=== PATIENT | female | born 1955 | race Caucasian/White ===

== ENCOUNTER 2017-02-21 00:32 | Outpatient (CLI) | payer MEDICAID | END 2017-02-21 00:33 | disposition critical access hospital (66) | DX: R45.89 Other symptoms and signs involving emotional state (principal) | CPT/HCPCS: A0425; A0429 ==

== ENCOUNTER 2017-02-21 00:52 | Inpatient (IN) | payer MEDICAID ==
[2017-02-21] MEDS ORDERED: SODIUM CHLORIDE 0.9% 1,000 ML IV ONE (02:42)
[2017-02-21] MEDS ORDERED: SODIUM CHLORIDE FLUSH 0.9% 10 ML SYRINGE IVP PRN ×2 (03:26→06:45)
[2017-02-21] MEDS ORDERED: SODIUM CHLORIDE 0.9% 1,000 ML IV SCH (04:00)
[2017-02-21] MEDS: NS W/20 MEQ KCL 1,000 ML IV SCH ×5 (04:25→21:51)
[2017-02-21] MEDS: MAGNESIUM OXIDE 400 MG TABLET PO SCH ×2 (06:10→11:42)
[2017-02-21] MEDS: METHOCARBAMOL 500 MG TABLET PO PRN ×3 (06:10→18:40)
[2017-02-21] MEDS: SODIUM CHLORIDE FLUSH 0.9% 10 ML SYRINGE IVP SCH ×3 (06:10→13:02)
[2017-02-21] MEDS: POTASSIUM CHLOR 10 MEQ/100 ML 100 ML IV SCH ×4 (08:44→11:42)
[2017-02-21] MEDS: ENOXAPARIN 40 MG/0.4 ML SYRINGE SUBQ SCH (09:49)
[2017-02-21] MEDS ORDERED: METHOCARBAMOL 500 MG TABLET PO SCH (21:15)
[2017-02-21] MEDS: ACETAMINOPHEN 325 MG TABLET PO PRN (23:19)
[2017-02-22] MEDS: SODIUM CHLORIDE FLUSH 0.9% 10 ML SYRINGE IVP SCH ×4 (05:42→20:14)
[2017-02-22] MEDS: NS W/20 MEQ KCL 1,000 ML IV SCH ×4 (05:54→20:15)
[2017-02-22] MEDS: METHOCARBAMOL 500 MG TABLET PO SCH ×4 (05:55→20:25)
[2017-02-22] MEDS: ACETAMINOPHEN 325 MG TABLET PO PRN ×2 (05:55→10:56)
[2017-02-22] MEDS: ENOXAPARIN 40 MG/0.4 ML SYRINGE SUBQ SCH (08:53)
[2017-02-22] MEDS ORDERED: ZOLPIDEM 5 MG TABLET PO PRN (14:03)
[2017-02-22] MEDS: IBUPROFEN 800 MG TABLET PO SCH ×2 (15:08→20:25)
[2017-02-22] MEDS ORDERED: FLUoxetine 10 MG CAPSULE PO SCH (21:00)
[2017-02-23] MEDS: NS W/20 MEQ KCL 1,000 ML IV SCH ×2 (01:37→11:35)
[2017-02-23] MEDS: IBUPROFEN 800 MG TABLET PO SCH ×2 (05:36→13:08)
[2017-02-23] MEDS: SODIUM CHLORIDE FLUSH 0.9% 10 ML SYRINGE IVP SCH ×2 (05:46→13:09)
[2017-02-23] MEDS ORDERED: FLUoxetine 10 MG CAPSULE PO SCH (09:00)
[2017-02-23] MEDS ORDERED: LISINOPRIL 5 MG TABLET PO SCH (09:00)
[2017-02-23] MEDS ORDERED: FLUOXETINE HCL 20 MG PO SCH (09:00)
[2017-02-23] MEDS: METHOCARBAMOL 500 MG TABLET PO SCH ×2 (09:31→13:08)
[2017-02-23] MEDS: ENOXAPARIN 40 MG/0.4 ML SYRINGE SUBQ SCH (09:32)
== END 2017-02-23 13:56 | disposition home or self-care (01) | DRG 640 ==
DX: E87.1 Hypo-osmolality and hyponatremia (principal); G93.49 Other encephalopathy; E87.6 Hypokalemia; I10 Essential (primary) hypertension; Z79.51 Long term (current) use of inhaled steroids; Z79.899 Other long term (current) drug therapy